=== PATIENT | male | born 1980 | race African-American/Black ===

== ENCOUNTER 2020-10-14 20:24 | Emergency (ER) | payer SELFPAY ==
[~2020-10-14] VITALS: Ht 195.6 cm; Wt 86.2 kg
[2020-10-14] MEDS ORDERED: ASPIRIN 81 MG TAB.CHEW ONE (21:11)
--- NOTE | 2020-10-14 21:20 | NUR ---
blood obtained and sent to lab
[2020-10-14 21:23] LABS: BASOPHILS # (AUTO) 0.1 /CMM (0.0-0.2); BASOPHILS % (AUTO) 0.9 % (0.0-2.0); EOSINOPHILS % (AUTO) 3.6 % (0.0-6.0); HEMATOCRIT 40 % (39-51); HEMOGLOBIN 13.6 g/dL (13.5-17.5); LYMPHOCYTES # (AUTO) 1.9 /CMM (0.8-4.8); LYMPHOCYTES % (AUTO) 30.1 % (20.0-44.0); MEAN CORPUSCULAR HGB CONC 34 g/dl (31.0-36.0); MEAN CORPUSCULAR VOLUME 95 fL (80-96); MONOCYTES # (AUTO) 0.5 /CMM (0.1-1.30); MONOCYTES % (AUTO) 7.6 % (2.0-12.0); NEUTROPHILS # (AUTO) 3.6 /CMM (1.8-8.9); NEUTROPHILS % (AUTO) 57.8 % (43.0-81.0); PLATELET COUNT (AUTO) 290 /CMM (150-450); RED BLOOD CELL COUNT(AUTO) 4.23 MIL/uL (4.5-6.0); WHITE BLOOD COUNT (AUTO) 6.3 K/uL (4.3-11.0)
[2020-10-14] MEDS ORDERED: ASPIRIN 81 MG TAB.CHEW PO ONE (21:30)
--- NOTE | 2020-10-14 21:33 | NUR ---
xray at bedside
[2020-10-14 21:53] LABS: CALCIUM, SERUM 8.7 mg/dL (8.5-10.1); CARBON DIOXIDE 28 mmol/L (21-32); CHLORIDE 107 mmol/L (98-107); CREATININE 1.1 mg/dL (0.6-1.3); GLUCOSE 74 mg/dL (74-106); POTASSIUM 3.9 mmol/L (3.5-5.1); SODIUM SERUM 142 mmol/L (136-145); UREA NITROGEN, BLOOD 19 mg/dL (7-18)
[2020-10-14 21:56] LABS: ALANINE AMINOTRANSFERASE 22 U/L (12-78); ALBUMIN 3.5 g/dL (3.4-5.0); ALKALINE PHOSPHATASE 61 U/L (46-116); ASPARTATE AMINOTRANSFERASE 16 U/L (15-37); BILIRUBIN,DIRECT 0.1 mg/dL (0.0-0.2); BILIRUBIN,TOTAL 0.4 mg/dL (0.2-1.0)
[2020-10-14] MEDS ORDERED: NAPR-1143 PO (22:25)
--- NOTE | 2020-10-14 22:43 | NUR ---
Patient discharged to home in stable condition. Written and verbal after care instructions given. Patient verbalizes understanding of instruction. IV removed. Catheter intact and site benign. Pressure and 4x4 applied to site. No bleeding noted. Pt ambulatory with a steady gait
[2020-10-14 22:48] VITALS: BP 122/80
== END 2020-10-14 22:43 | disposition home or self-care (01) ==
LOC: ER 20:24
DX: M94.0 Chondrocostal junction syndrome [Tietze] (principal); J02.8 Acute pharyngitis due to other specified organisms; F12.90 Cannabis use, unspecified, uncomplicated; R59.0 Localized enlarged lymph nodes; Z60.2 Problems related to living alone
CPT/HCPCS: 36415; 71045-TC; 80048-TC; 80076-TC; 84484-TC; 85025-TC

== ENCOUNTER 2020-10-27 13:02 | Emergency (ER) | payer SELFPAY ==
[~2020-10-27] VITALS: Ht 195.6 cm; Wt 86.2 kg
[~2020-10-27 13:02] MED LIST: NAPR-1143 PO
[2020-10-27 14:01] VITALS: BP 154/88
[2020-10-27] MEDS ORDERED: HYDROMORPHONE 1 MG/1 ML DISP.SYRIN IM ONE (14:30)
[2020-10-27] MEDS ORDERED: KETOROLAC TROMETHAMINE INJ 60 MG/2 ML VIAL IM ONE (14:30)
[2020-10-27] MEDS ORDERED: HYDROMORPHONE 1 MG/1 ML DISP.SYRIN ONE (15:15)
[2020-10-27] MEDS ORDERED: KETOROLAC TROMETHAMINE INJ 30 MG/ML VIAL ONE (15:15)
--- NOTE | 2020-10-27 15:23 | NUR ---
Medication given patients appreaciated it .
[2020-10-27] MEDS ORDERED: CYCL10TA9 PO (15:47)
[2020-10-27] MEDS ORDERED: NAPR-1164 PO (15:47)
--- NOTE | 2020-10-27 16:06 | NUR ---
Patient discharged to home in stable condition. Written and verbal after care instructions given. Patient verbalizes understanding of instruction.
--- NOTE | 2020-10-27 16:07 | NUR ---
Patient able to walk with difficulties his friend to pick him up from waiting area .
== END 2020-10-27 16:07 | disposition home or self-care (01) ==
LOC: ER 13:04
DX: M54.32 Sciatica, left side (principal); Z60.2 Problems related to living alone
CPT/HCPCS: 96372 ×2; 99284; J1170; J1885